=== PATIENT | male | born 1960 | race Caucasian/White ===

== ENCOUNTER 2023-06-02 18:33 | Emergency (ER) | payer OTHER, MEDICAID ==
[~2023-06-02] VITALS: Ht 180.3 cm; Wt 72.6 kg
[2023-06-02 18:40] VITALS: BP 124/79; PULSE 84; RESP 20; TEMP 98; O2SAT 98
[2023-06-02] MEDS: KETOROLAC 60 MG/2 ML VIAL IM ONE (21:46)
[2023-06-02] MEDS ORDERED: ACET-8905 PO (21:54)
[2023-06-02] MEDS ORDERED: IBUP-2213 PO (21:54)
[2023-06-02 22:30] VITALS: BP 124/79; PULSE 84; RESP 20; TEMP 98; O2SAT 98
== END 2023-06-02 22:54 | disposition home or self-care (01) ==
LOC: MED 18:33
DX: S13.4XXA Sprain of ligaments of cervical spine, initial encounter (principal); M54.50 Low back pain, unspecified; M25.562 Pain in left knee; Z79.899 Other long term (current) drug therapy; V49.88XA Car occupant (driver) (passenger) injured in other specified transport accidents, initial encounter; Y93.89 Activity, other specified; Y92.89 Other specified places as the place of occurrence of the external cause; Y99.8 Other external cause status
CPT/HCPCS: 72040; 72100; 73562; 96372; 99284; J1885